=== PATIENT | male | born 1990 | race Caucasian/White ===

== ENCOUNTER → 2019-04-06 | Outpatient (CLI) | payer BC ==
--- NOTE | 2019-04-06 19:36 | Diagnostic Imaging Report ---
EXAMINATION: Left ankle radiographs, 3 views. COMPARISON: None. HISTORY: 28-Year-old male, left ankle pain. Injury 2 weeks ago. FINDINGS: There is a normal variant os trigonum. There are anterior tibiotalar osteophytes without pronounced joint space loss. There is no tibiotalar joint effusion. There is mild degenerative type enthesopathy at the Achilles tendon insertion. The alignment of the ankle mortise is unremarkable. There is no identified acute fracture. There is no prominent focal soft tissue swelling. IMPRESSION: 1. No acute bony abnormality at the level of the left ankle. 2. Mild tibiotalar osteoarthritis. Dictated by: Dictated on workstation # [id number]
== END ==
LOC: RAD FS 16:50
PROVIDERS: ATTEND Nurse Practitioner Family
DX: M19.072 Primary osteoarthritis, left ankle and foot (principal)
CPT/HCPCS: 73610